=== PATIENT | female | born 1975 | race Caucasian/White ===

== ENCOUNTER → 2018-01-03 | Outpatient (CLI) | payer OTHER ==
--- NOTE | 2018-01-03 11:03 | MM ---
Reason for exam: screening (asymptomatic). Baseline mammogram. History: Family history of breast cancer in maternal grandmother at age 72 and breast cancer in paternal cousin at age 47. Took hormonal contraceptives for 1 year beginning at age 24. Physical Findings: Nurse did not find any significant physical abnormalities on exam. MG Screening Mammo w CAD Bilateral CC, MLO, and XCCL view(s) were taken. There are scattered fibroglandular densities. There is no discrete abnormality. These results were verbally communicated with the patient and result sheet given to the patient on 01/03/18. ASSESSMENT: Negative, BI-RAD 1 RECOMMENDATION: Routine screening mammogram of both breasts in 1 year.
== END | disposition home or self-care (01) ==
LOC: RADMAMWWP 10:02
PROVIDERS: ATTEND Family Medicine
DX: Z12.31 Encounter for screening mammogram for malignant neoplasm of breast (principal)
CPT/HCPCS: 77067

== ENCOUNTER → 2018-10-23 | Outpatient (CLI) | payer OTHER ==
--- NOTE | 2018-10-23 11:05 | US ---
EXAMINATION TYPE: US abdomen complete DATE OF EXAM: 10/23/2018 COMPARISON: NONE CLINICAL HISTORY: R10.10 Upper Abdominal pain. Pt states RUQ pain, excessive belching EXAM MEASUREMENTS: Liver Length: 12.7 cm Gallbladder Wall: 0.2 cm CBD: 0.3 cm Spleen: 11.3 cm Right Kidney: 10.7 x 3.2 x 4.5 cm Left Kidney: 10.9 x 4.5 x 5.7 cm Pancreas: wnl Liver: wnl Gallbladder: wnl Evidence for sonographic Webb's sign: No CBD: wnl Spleen: wnl Right Kidney: wnl, lower pole gassed out Left Kidney: wnl Upper IVC: wnl Abd Aorta: wnl IMPRESSION: 1. Normal abdomen ultrasound
== END | disposition home or self-care (01) ==
LOC: RADUSWWP 06:59
PROVIDERS: ATTEND Family Medicine
DX: R10.10 Upper abdominal pain, unspecified (principal); R10.813 Right lower quadrant abdominal tenderness
CPT/HCPCS: 76700

== ENCOUNTER → 2018-11-08 | Outpatient (CLI) | payer OTHER ==
--- NOTE | 2018-11-08 13:01 | NM ---
EXAMINATION TYPE: NM hepatobiliary w EF DATE OF EXAM: 11/08/2018 COMPARISON: NONE HISTORY: 43-year-old female right upper quadrant pain TECHNIQUE: After the intravenous administration of 4.37 mCi Tc 99m Mebrofenin hepatobiliary scintigra phy is performed. Immediate images post injection. FINDINGS: There is satisfactory initial accumulation of tracer by the liver. The gallbladder is visualized wit hin 4 minutes. The small bowel activity is noted within 10 minutes. At one hour 8 ounces of oral en sure plus is given to mimic CCK and gallbladder ejection fraction is calculated at 93 %, elevated abo ve the expected range. IMPRESSION: 1. No scintigraphic evidence for acute/chronic cholecystitis or biliary dyskinesia. 2. Elevated gallbladder ejection fraction (93%) may be seen in the setting of gallbladder hyperkinesi s.
== END | disposition home or self-care (01) ==
LOC: RADNMMAIN 08:44
PROVIDERS: ATTEND Family Medicine
DX: R10.811 Right upper quadrant abdominal tenderness (principal); R10.11 Right upper quadrant pain; R11.0 Nausea
CPT/HCPCS: 78226; A9537

== ENCOUNTER → 2018-12-05 | Day surgery (SDC) | payer OTHER ==
[~2018-12-05] MED LIST: DEXAMETHASONE SOD PHOSPHATE 10 MG/ML 1 ML VIAL IV ONE; GLYCOPYRROLATE 0.2 MG/ML 2 ML VIAL ONE; HEPARIN SODIUM,PORCINE 5,000 UNIT/ML 1 ML VIAL SQ ONE; HYDROmorphone (PF) 1 MG/ML ONE; HYDROmorphone 0.5 MG/0.5 ML SYRINGE IVP PRN; KETOROLAC 30 MG/ML 1 ML VIAL ONE; LACTATED RINGERS 1,000 ML IV ONE; LACTATED RINGERS 1,000 ML IV SCH; LIDOCAINE 1% 20 ML VIAL (10MG/ML) FOR IV START INTRADERMA PRN; LIDOCAINE 1% INJ 10MG/ML (20 ML MDV) ONE; LIDOCAINE 1%-EPI 1:100,000 20 ML VIAL SQ ONE; MIDAZOLAM 2 MG/2 ML VIAL ONE; NEOSTIGMINE 1 MG/ML 10 ML VIAL ONE; ONDANSETRON 4 MG/2 ML VIAL IVP ONE; PROPOFOL 10 MG/ML 20 ML VIAL IV ONE; ROCURONIUM BROMIDE 10 MG/ML 10 ML VIAL IV ONE; SCOPOLAMINE 1.5MG/72HR PATCH TRANSDERM ONE; diphenhydrAMINE 50 MG/ML 1 ML VIAL IVP ONE; fentaNYL (PF) 50 MCG/ML 2 ML AMP ONE
--- NOTE | 2018-12-05 14:37 | P.OP ---
Date of Procedure: 12/05/18 Preoperative Diagnosis: Biliary Dyskinesia Postoperative Diagnosis: Biliary Dyskinesia Procedure(s) Performed: Laparoscopic Cholecystectomy Anesthesia: ANITA Surgeon: Marlon Lam Pathology: other (Gallbladder) Condition: stable Disposition: same day Indications for Procedure: 43-year-old female that presented with abdominal pain and inability to eat. She also complained of nausea and vomiting. Workup was performed. She was found to have a hyperkinetic gallbladder on HIDA scan. Based on her symptoms and HIDA findings, the patient was noted to be a candidate for a laparoscopic cholecystectomy. I did review the procedure with the patient and recent literature on success rates with this indication for surgery. The patient was agreeable with surgery. Risks, benefits and alternatives were provided to the patient and she did provide consent prior to attending the operating suite. Operative Findings: Per operative note Description of Procedure: The patient was brought into the operating suite and placed in supine position on the operating table. Sedation was provided by anesthesia and the patient underwent endotracheal intubation. The patient was then prepped and draped in regular sterile fashion. A infra umbilical incision was made dissection was carried to the fascia the fascia was incised and entered with a 12 mm trocar. Pneumoperitoneum was achieved. 3 additional 5 mm trochars were then placed. One was placed in the subxiphoid location and the 2 other were placed in the right upper quadrant. The gallbladder was then grasped and retracted. Dissection was carried to dissect the adherent her tibial tissue from the gal lbladder. Dissection was carried towards the cystic duct and cystic artery. The cystic duct and artery were skeletonized. 2 clips were placed proximally and the cystic duct and one was placed distally and the cystic duct was ligated. 2 clips were placed proximally and the cystic artery and one was placed distally and the cystic artery was ligated. Cautery was then used to dissect the gallbladder from the gallbladder fossa on the liver bed. Hemostasis was maintained. The gallbladder was then placed in an Endo Catch bag and removed from the abdomen from the 12 mm port site. Irrigation was then placed in the right upper quadrant and suctioned. Pneumoperitoneum was released and all ports were removed from the abdomen. The infraumbilical incision site was closed with a [id number] 0 Vicryl suture. All skin incisions were closed with 4-0 Vicryl subcuticular suture. Sterile dressing was applied. The patient was awakened in the operating suite and taken to postanesthesia care unit in stable condition.
[2018-12-05 14:48] VITALS: TEMP 97.2
[2018-12-05 16:37] VITALS: BP 134/52; PULSE 59; RESP 18
== END | disposition home or self-care (01) ==
LOC: OR 12:09
PROVIDERS: ATTEND Surgery
DX: K81.1 Chronic cholecystitis (principal); Z83.3 Family history of diabetes mellitus; Z82.49 Family history of ischemic heart disease and other diseases of the circulatory system; F17.210 Nicotine dependence, cigarettes, uncomplicated; Z79.899 Other long term (current) drug therapy
CPT/HCPCS: 81025; 88304; 47562; J2250; J1200; J1644; J1100; J2710; J0690; J2405; J2001; J3010; J1885; J1170; J2704

== ENCOUNTER → 2019-10-31 | Outpatient (CLI) | payer OTHER ==
--- NOTE | 2019-10-31 15:40 | XR ---
EXAMINATION TYPE: XR abdomen 2V DATE OF EXAM: 10/31/2019 COMPARISON: None INDICATION: Lower abdominal pain TECHNIQUE: Single view abdomen frontal projection upright view FINDINGS: Small amount of colonic bowel gas is in the ascending colon. Cholecystectomy clips are in the right u pper quadrant. No free air is evident. No differential air-fluid levels are evident. Psoas margins are normal. No organomegaly is present. IMPRESSION: 1. Unremarkable Abdomen
== END | disposition home or self-care (01) ==
LOC: RADXRYALE 10:05
PROVIDERS: ATTEND Physician Assistant Medical
DX: R10.30 Lower abdominal pain, unspecified (principal)
CPT/HCPCS: 74019